=== PATIENT | female | born 2000 | race Caucasian/White ===

== ENCOUNTER 2021-08-19 16:33 | Emergency (ER) | payer OTHER, SELFPAY ==
--- NOTE | ~2021-08-19 | XR_ITS ---
EXAMINATION: XR finger 4th LT min 2V EXAM DATE: 08/19/2021 16:51 INDICATION: Injury one month ago with dog leash. TECHNIQUE: Left 4th finger frontal, lateral and oblique projections obtained and reviewed. There i s no prior study for comparison. FINDINGS: There is an avulsion fracture off the left 4th middle phalangeal base along the medial, ul [place]is side of the joint. There is about 2 mm proximal distraction. There is overlying soft tissue swell ing. No dislocation. IMPRESSION: Left 4th middle phalangeal base avulsion fracture. Reviewed, dictated and finalized at location B.
--- NOTE | 2021-08-19 16:38 | ED.UPPEXIN ---
HPI - Extremity Injury (Upper) General Chief Complaint: Extremity Injury, Upper Stated Complaint: lt hand ring finger injury Time Seen by Provider: 08/19/21 16:38 Source: patient and RN notes reviewed History of Present Illness HPI narrative: Patient is a 20-year-old female who presents the urgent care with complaints of swelling and pain to the left ring finger. Patient states that approximately 1 month ago she was walking a dog and cut her finger caught in the leash. Patient states that it is worsened in swelling and pain over the last few days and she has been taking ibuprofen and using ice. Denies of any reinjury. States that she is right-hand dominant. No other acute complaints. No acute distress noted. Patient aware of the plan of care. Some parts of this dictation were generated by voice recognition software and may contain typographical and/or grammatical inaccuracies. Related Data Home Medications Medication Instructions Recorded Confirmed norgestimate-ethinyl estradiol 1 tablet PO DAILY 08/19/21 08/19/21 [Tri-Sprintec (28)] Allergies Allergy/AdvReac Type Severity Reaction Status Date / Time cefaclor Allergy Unknown RASH Verified 08/19/21 16:44 Penicillins Allergy Unknown RASH Verified 08/19/21 16:44 Review of Systems Review of Systems: CONSTITUTIONAL: Denies fever, chills, or sweats. EYES: Denies visual changes, redness, or discharge. ENT: Denies rhinorrhea, congestion, sore throat, or otalgia. CARDIOVASCULAR: Denies chest pain, palpitations, or edema. RESPIRATORY: Denies cough or dyspnea. GASTROINTESTINAL: Denies abdominal pain, nausea, vomiting, or diarrhea. GENITOURINARY: Denies dysuria or hematuria. SKIN: Denies rash or itching. MUSCULOSKELETAL: Reports of left ring finger pain and swelling NEUROLOGIC: Denies headache, numbness, or weakness. All other systems reviewed are negative, except as documented in HPI. PMFSH Comments At the time of my signature, I reviewed and agree with the nursing past medical, surgical, social, and family history. There is no relevant family history pertinent to the patient complaint. Exam Narrative: GENERAL: This is a well-nourished, well-developed patient, in no apparent distress. HEAD: normocephalic, atraumatic. EYES: PERRL. Sclera clear/white. Vision is grossly intact. EARS: External ears normal NOSE: External nose normal with no obvious nasal discharge, nares without redness, no rhinorrhea. THROAT: Mucous membranes moist NECK: Neck supple CARDIOVASCULAR: Regular rate and rhythm without murmurs, gallops, or rubs. RESPIRATORY: Clear to auscultation. Breath sounds equal bilaterally. No wheezes, rales, or rhonchi. SKIN: warm, intact with no suspicious lesions or rash, good texture and turgor. NEURO: awake, alert, and oriented to person, place and time. There were no obvious focal neurologic abnormalities. EXTREMITIES: Mild swelling noted to the ulnar aspect of the PIP of the left ring finger with mild tenderness. No ecchymosis noted. Range of motion to left upper extremity within normal limits with positive strong left radial pulse and capillary refill less than 2 seconds Course Vital Signs Vital signs: Vital Signs Temperature 98.7 F 08/19/21 16:45 Pulse Rate 74 08/19/21 16:45 Respiratory Rate 16 08/19/21 16:45 Blood Pressure 122/72 08/19/21 16:45 Pulse Oximetry 100 08/19/21 16:45 Temperature 98.7 F 08/19/21 16:46 Pulse Rate 74 08/19/21 16:46 Respiratory Rate 16 08/19/21 16:46 Blood Pressure 122/72 08/19/21 16:46 Pulse Oximetry 100 08/19/21 16:46 Reviewed MDM - Extremity Injury (Upper) MDM Narrative Medical decision making narrative: Reviewed x-ray results with the patient. She is aware that there is an avulsion fracture to the left fourth finger. Advised the patient to wear the metal splint as directed and follow-up with the referred plastics. Continue use Tylenol/ibuprofen as needed. Follow-up with your PCP within 2
[2021-08-19 16:45] VITALS: BP 122/72; PULSE 74; RESP 16; TEMP 37.1; O2SAT 100
[2021-08-19 16:46] VITALS: BP 122/72; PULSE 74; RESP 16; TEMP 37.1; O2SAT 100
== END 2021-08-19 17:08 | disposition home or self-care (01) ==
PROVIDERS: Emergency Provider Nurse Practitioner Family
DX: S62.625A Displaced fracture of middle phalanx of left ring finger, initial encounter for closed fracture (principal); X58.XXXA Exposure to other specified factors, initial encounter; Y93.K1 Activity, walking an animal
CPT/HCPCS: 29130; 73140; 99214; G0463